=== PATIENT | male | born 1990 | race Caucasian/White ===

== ENCOUNTER 2016-07-30 13:46 | Emergency (ER) | payer OTHER ==
[2016-07-30] MEDS ORDERED: ONDANSETRON 4MG/2ML VIAL (J2405) As Ordered ONE (14:50)
[2016-07-30 15:12] LABS: BASO % 0.5 % (0.0-1.0); EOS % 0.4 % (0.0-3.0); LARGE UNSTAINED CELL # 0.3 K/mm3 (0.0-0.4); LARGE UNSTAINED CELL % 4.1 % (0.0-4.0); LYMPH # 0.9 K/mm3 (1.5-6.5); LYMPH % 13.7 % (24.0-44.0); MEAN CORPUSCULAR HEMOGLOBIN 30.9 pg (27.0-33.0); MEAN CORPUSCULAR HGB CONC 34.2 g/dl (32.0-36.5); MEAN CORPUSCULAR VOLUME 90.3 fl (80.0-96.0); MONO # 0.5 K/mm3 (0.0-0.8); MONO % 8.6 % (0.0-5.0); NEUTROPHILS # 4.5 K/mm3 (1.8-7.7); NEUTROPHILS % 72.6 % (36.0-66.0); PLATELET COUNT, AUTOMATED 212 k/mm3 (150-450); RED CELL DISTRIBUTION WIDTH 11.9 % (11.5-14.5); WHITE BLOOD COUNT 6.2 K/mm3 (4.0-10.0)
[2016-07-30 15:16] LABS: ANION GAP 11 MEQ/L (8-16); BLOOD UREA NITROGEN 12 MG/DL (7-18); CALCIUM LEVEL 8.7 MG/DL (8.5-10.1); CARBON DIOXIDE LEVEL 26 MEQ/L (21-32); CHLORIDE LEVEL 101 MEQ/L (98-107); CREATININE FOR GFR 1.02 MG/DL (0.70-1.30); GLOMERULAR FILTRATION RATE > 60.0 (>60); GLUCOSE, FASTING 102 MG/DL (70-105); POTASSIUM SERUM 3.9 MEQ/L (3.5-5.1); SODIUM LEVEL 138 MEQ/L (136-145)
--- NOTE | 2016-07-30 17:05 | EDDOCDS ---
Physician Documentation [facility] Name: Adriano Esqueda Age: 25 yrs Sex: Male : 1990 Arrival Date: 07/30/2016 Time: 13:46 Bed I7 Private MD: Jared Ramirez W Disposition: 07/30/16 16:51 Discharged to Home/Self Care. Impression: Nausea with vomiting, unspecified, Dysuria. - Condition is Stable. - Discharge Instructions: Nausea and Vomiting. - Prescriptions for ZOFRAN ODT 4 mg Oral - dissolve 1 tablet by ORAL route 3-4 times daily As needed do not chew, do not swallow whole; 20 tablet. - Medication Reconciliation, Local Pharmacy Hours form. - Follow up: Private Physician; When: 2 - 3 days; Reason: Wound/Symptom Recheck, Recheck today's complaints, Continuance of care. - Problem is new. - Symptoms have improved. Historical: - Allergies: No known drug Allergies; - Home Meds: 1. none - PMHx: Asthma; - PSHx: none; - Social history: Smoking status: Patient uses tobacco products, heavy tobacco smoker. No barriers to communication noted, The patient speaks fluent Greenlandic, Speaks appropriately for age. - Family history: Not pertinent. - : The pt / caregiver states he / she is not on anticoagulants. Home medication list is obtained from the patient. - Exposure Risk Screening:: None identified. Vital Signs: 07/30 13:48 BP 133 / 73; Pulse 101; Resp 18 S; Temp 96.9(O); Pulse Ox 97% on R/A; Weight 73.03 kg / gr2 161 lbs (R); Height 6 ft. 0 in. (182.88 cm) (R); Pain 3/10; 16:57 BP 122 / 58; Pulse 89; Resp 18; Temp 98.4; Pulse Ox 98.4% ; Pain 0/10; jlf 13:48 Body Mass Index 21.84 (73.03 kg, 182.88 cm) gr2 MDM: 14:33 IV Saline Lock ordered. dt4 14:33 NS 0.9% 1000 ml IV at bolus once ordered. dt4 14:33 Ondansetron 4 mg IVP once ordered. dt4 14:33 Fluid Challenge ordered. dt4 14:35 CBC with Diff Ordered. EDMS 14:35 Basic Metabolic Profile Ordered. EDMS 14:35 Urinalysis Ordered. EDMS 14:35 Urine Culture Ordered. EDMS 14:51 Financial registration complete. mm15 14:51 [facility] Payment Agreement was scanned into [employer] and attached to record. mm15 15:55 CBC with Diff Reviewed. ke 15:55 Basic Metabolic Profile Reviewed. ke 16:35 Urinalysis Reviewed. ke Administered Medications: 14:52 Drug: NS 0.9% 1000 ml [sodium chloride 0.9 % intravenous solution] Route: IV; Rate: srm bolus; Site: right antecubital; 14:52 Drug: Ondansetron 4 mg [ondansetron HCl 2 mg/mL intravenous solution (2 mL)] Route: srm IVP; Site: right antecubital; Signatures: Dispatcher [employer] EDKari Kim, RN RN srm Nimesh Chow, INTEGRATION SOFTWARE DEVELOPER INTEGRATION SOFTWARE DEVELOPER Nikki Francis RN RN ck1 Iza Harris RN RN [facility] Aleksey Cruz mm15 Bijal Metcalf PA-C PAUrbano dt4 The chart was reviewed and I authenticate all verbal orders and agree with the evaluation and treatment provided.Attachments: 14:51 [facility] Payment Agreement mm15 MTDD
--- NOTE | 2016-07-30 17:05 | EDDOCDS ---
Nurse's Notes [facility] Name: Adriano Esqueda Age: 25 yrs Sex: Male : 1990 Arrival Date: 07/30/2016 Time: 13:46 Bed I7 Private MD: Jared Ramirez W Diagnosis: Nausea with vomiting, unspecified;Dysuria Presentation: 07/30 13:51 Presenting complaint: Patient states: Fever for the past two days (doesn't have ck1 thermometer at home), unable to tolerate PO fluids/food. Denies abdominal pain. Adult Sepsis Screening: The patient does not have new or worsening altered mentation. Patient's respiratory rate is less than 22. Systolic blood pressure is greater than 100. Patient has a qSOFA score of 0- Negative Sepsis Screen. Suicide/Homicide risk assessment- the patient denies having any suicidal and/or homicidal ideations and does not present with any other emotional, behavioral or mental health complaints. Status: Patient is not a loan service officer or dependent. Transition of care: patient was not received from another setting of care. 13:51 Method Of Arrival: Walkin/Carried/Asstd ck1 13:51 Acuity: LETY Level 4 ck1 Triage Assessment: 13:53 General: Appears in no apparent distress, comfortable. Pain: Denies pain. HIV screening ck1 NA for this visit Offered previously. GI: Reports nausea, vomiting. : Reports burning with urination. Derm: Skin is intact, is healthy with good turgor, Skin is pink, warm & dry. Musculoskeletal: Circulation, motion, and sensation intact Range of motion intact in all extremities. Historical: - Allergies: No known drug Allergies; - Home Meds: 1. none - PMHx: Asthma; - PSHx: none; - Social history: Smoking status: Patient uses tobacco products, heavy tobacco smoker. No barriers to communication noted, The patient speaks fluent Rwandan, Speaks appropriately for age. - Family history: Not pertinent. - : The pt / caregiver states he / she is not on anticoagulants. Home medication list is obtained from the patient. - Exposure Risk Screening:: None identified. Screenin:04 Screening information is obtained from the patient. Fall risk: No risks identified. srm Assistance ADL's: requires no assistance with activities of daily living. Abuse/DV Screen: The patient / caregiver reports he/she is: not in a situation that causes fear, pain or injury. Nutritional screening: No deficits noted. Advance Directives: There is no active DNR order. home support is adequate. Assessment: 15:04 General: Appears in no apparent distress, Behavior is appropriate for age, cooperative. srm Respiratory: Airway is patent Respiratory effort is even, unlabored, Breath sounds are clear bilaterally. GI: Abdomen is non- distended Bowel sounds present X 4 quads. Abd is soft and non tender X 4 quads. Derm: No deficits noted. 16:00 General: IV infusing without difficulty, no new problems or complaints voiced, will cj continue to monitor. 17:02 General: Appears in no apparent distress, comfortable, Behavior is appropriate for age, cjh cooperative, reviewed discharge instructions, encouraged and answered questions, patient denies further needs, declines offer of additional assistance. Vital Signs: 13:48 BP 133 / 73; Pulse 101; Resp 18 S; Temp 96.9(O); Pulse Ox 97% on R/A; Weight 73.03 kg gr2 (R); Height 6 ft. 0 in. (182.88 cm) (R); Pain 3/10; 16:57 BP 122 / 58; Pulse 89; Resp 18; Temp 98.4; Pulse Ox 98.4% ; Pain 0/10; jlf 13:48 Body Mass Index 21.84 (73.03 kg, 182.88 cm) gr2 Vitals: 13:48 Log In Time: July 30, 2016 at 13:48. gr2 ED Course: 13:47 Patient visited by Jorge Quiñonez. gr2 13:47 Patient moved to Waiting gr2 13:48 Jared Ramirez is Private Physician. gr2 13:49 Patient visited by Jorge Quiñonez. gr2 13:49 Patient moved to Pre RCE gr2 13:52 Triage Initiated ck1 14:19 Bijla Metcalf [facility]-C [facility]. dt4 14:19 Esme Meza MD is Attending Physician. dt4 14:19 Patient visited by Bijal Metcalf PA-C. dt4 14:19 Patient moved to Triage 2 ttb 14:38 Patient moved to I7 / jjr 14:42 Patient visited by Cheikh Sheth PCA. jlf 14:49 Patient visited by Kari Borges RN. srm 14:49 Basic Metabolic Profile Sent. srm 14:49 CBC with Diff Sent. srm 14:49 Inserted saline lock: 20 gauge in right antecubital area and blood collected. srm 14:51 [facility] Payment Agreement was scanned into [employer] and attached to record. mm15 15:04 The patient / caregiver is instructed regarding the plan of care and ED course. srm Accompanied by Family Member, Patient has correct armband on for positive identification. Placed in gown. Bed in low position. Call light in reach. 15:05 Patient visited by Kari Borges RN. srm 15:18 Patient visited by Cheikh Sheth PCA. jlf 15:50 Patient visited by Cheikh Sheth PCA. jlf 15:51 Urine Culture Sent. jlf 15:51 Urinalysis Sent. jlf 16:10 Patient visited by Cheikh Sheth PCA. jlf 16:22 Patient visited by Cheikh Sheth PCA. jlf 16:33 PHCP role handed off by Bijal Metcalf PA-C ke 16:33 Nimesh Chow FNP is PHCP. ke 16:33 Patient visited by Nimesh Chow FNP. ke 16:57 Patient visited by Cheikh Sheth PCA. jlf 16:58 Patient visited by Cheikh Sheth PCA. jlf 17:02 Discontinued lock intact, bleeding controlled, pressure dressing applied, No cjh redness/swelling at site. No procedures done that require assistance. Administered Medications: 14:52 Drug: NS 0.9% 1000 ml [sodium chloride 0.9 % intravenous solution] Route: IV; Rate: srm bolus; Site: right antecubital; 14:52 Drug: Ondansetron 4 mg [ondansetron HCl 2 mg/mL intravenous solution (2 mL)] Route: srm IVP; Site: right antecubital; Order Results: Lab Order: CBC with Diff; SPEC'M 07/30/16 14:47 Test: WHITE BLOOD COUNT; Value: 6.2; Range: 4.0-10.0; Units: K/mm3; Status: F Test: RED BLOOD COUNT; Value: 5.38; Range: 4.30-6.10; Units: M/mm3; Status: F Test: HEMOGLOBIN; Value: 16.6; Range: 14.0-18.0; Units: g/dl; Status: F Test: HEMATOCRIT; Value: 48.6; Range: 42.0-52.0; Units: %; Status: F Test: MEAN CORPUSCULAR VOLUME; Value: 90.3; Range: 80.0-96.0; Units: fl; Status: F Test: MEAN CORPUSCULAR HEMOGLOBIN; Value: 30.9; Range: 27.0-33.0; Units: pg; Status: F Test: MEAN CORPUSCULAR HGB CONC; Value: 34.2; Range: 32.0-36.5; Units: g/dl; Status: F Test: RED CELL DISTRIBUTION WIDTH; Value: 11.9; Range: 11.5-14.5; Units: %; Status: F Test: PLATELET COUNT, AUTOMATED; Value: 212; Range: 150-450; Units: k/mm3; Status: F Test: NEUTROPHILS %; Value: 72.6; Range: 36.0-66.0; Abnormal: Above high normal; Units: %; Status: F Test: LYMPH %; Value: 13.7; Range: 24.0-44.0; Abnormal: Below low normal; Units: %; Status: F Test: MONO %; Value: 8.6; Range: 0.0-5.0; Abnormal: Above high normal; Units: %; Status: F Test: EOS %; Value: 0.4; Range: 0.0-3.0; Units: %; Status: F Test: BASO %; Value: 0.5; Range: 0.0-1.0; Units: %; Status: F Test: LARGE UNSTAINED CELL %; Value: 4.1; Range: 0.0-4.0; Abnormal: Above high normal; Units: %; Status: F Test: NEUTROPHILS #; Value: 4.5; Range: 1.8-7.7; Units: K/mm3; Status: F Test: LYMPH #; Value: 0.9; Range: 1.5-6.5; Abnormal: Below low normal; Units: K/mm3; Status: F Test: MONO #; Value: 0.5; Range: 0.0-0.8; Units: K/mm3; Status: F Test: EOS #; Value: 0.0; Range: 0.0-0.50; Units: K/mm3; Status: F Test: BASO #; Value: 0.0; Range: 0.0-0.2; Units: K/mm3; Status: F Test: LARGE UNSTAINED CELL #; Value: 0.3; Range: 0.0-0.4; Units: K/mm3; Status: F Lab Order: Basic Metabolic Profile; SPEC'M 07/30/16 14:47 Test: GLUCOSE, FASTING; Value: 102; Range: 70-105; Units: MG/DL; Status: F Test: BLOOD UREA NITROGEN; Value: 12; Range: 7-18; Units: MG/DL; Status: F Test: CREATININE FOR GFR; Value: 1.02; Range: 0.70-1.30; Units: MG/DL; Status: F Test: GLOMERULAR FILTRATION RATE; Value: > 60.0; Range: >60; Status: F Test: SODIUM LEVEL; Value: 138; Range: 136-145; Units: MEQ/L; Status: F Test: POTASSIUM SERUM; Value: 3.9; Range: 3.5-5.1; Units: MEQ/L; Status: F Test: CHLORIDE LEVEL; Value: 101; Range: 98-107; Units: MEQ/L; Status: F Test: CARBON DIOXIDE LEVEL; Value: 26; Range: 21-32; Units: MEQ/L; Status: F Test: ANION GAP; Value: 11; Range: 8-16; Units: MEQ/L; Status: F Test: CALCIUM LEVEL; Value: 8.7; Range: 8.5-10.1; Units: MG/DL; Status: F Test Note: ; Units are mL/min/1.73 m2 Chronic Kidney Disease Staging per NKF: Stage I & II GFR >=60 Normal to Mildly Decreased Stage III GFR 30-59 Moderately Decreased Stage IV GFR 15-29 Severely Decreased Stage V GFR <15 Very Little GFR Left ESRD GFR <15 on HEAD TENNIS COACH Lab Order: Urinalysis; SPEC'M 07/30/16 15:46 Test: APPEARANCE, URINE; Value: CLEAR; Range: CLEAR; Status: F Test: COLOR, URINE; Value: YELLOW; Range: YELLOW; Status: F Test: PH,URINE; Value: 5.0; Range: 5.0-9.0; Units: UNITS; Status: F Test: SPECIFIC GRAVITY URINE AUTO; Value: 1.027; Range: 1.002-1.035; Status: F Test: PROTEIN, URINE AUTO; Value: NEGATIVE; Range: NEGATIVE; Units: mg/dL; Status: F Test: GLUCOSE, URINE (UA) AUTO; Value: NEGATIVE; Range: NEGATIVE; Units: mg/dL; Status: F Test: KETONE, URINE AUTO; Value: NEGATIVE; Range: NEGATIVE; Units: mg/dL; Status: F Test: UROBILINOGEN, URINE AUTO; Value: 0.2; Range: 0.0-2.0; Units: mg/dL; Status: F Test: BILIRUBIN, URINE AUTO; Value: NEGATIVE; Range: NEGATIVE; Status: F Test: NITRITE, URINE AUTO; Value: NEGATIVE; Range: NEGATIVE; Status: F Test: LEUKOCYTE ESTERASE, URINE AUTO; Value: NEGATIVE; Range: NEGATIVE; Status: F Test: BLOOD, URINE BLOOD; Value: NEGATIVE; Range: NEGATIVE; Status: F Test: WBC, URINE AUTO; Value: 3; Range: 0-3; Units: /HPF; Status: F Test: RBC, URINE AUTO; Value: 5; Range: 0-3; Abnormal: Above high normal; Units: /HPF; Status: F Test: BACTERIA, URINE AUTO; Value: NEGATIVE; Range: NEGATIVE; Status: F Test: SQUAMOUS EPITHELIAL CELL UR AU; Value: 0; Range: 0-6; Units: /HPF; Status: F Test: MUCUS, URINE; Value: SMALL; Range: NEGATIVE; Status: F Test: HYALINE CAST, URINE AUTO; Value: 0; Range: 0-1; Units: /LPF; Status: F Outcome: 16:51 Discharge ordered by Provider. ke 17:02 Discharge Assessment: Patient awake, alert and oriented x 3. No cognitive and/or cjh functional deficits noted. Patient verbalized understanding of disposition instructions. patient administered narcotics - no. The following High Risk Discharge criteria are identified: None. Discharged to home ambulatory, with parent. Condition: good Condition: stable Condition: improved. Discharge instructions given to patient, Instructed on discharge instructions, follow up and referral plans. medication usage, Demonstrated understanding of instructions, medications, Pt was receptive of discharge instructions/ teaching. Prescriptions given X 1. No special radiology studies were completed. Property :Personal belongings accompany Pt. 17:03 Patient left the ED. [facility] Signatures: Kari Borges, RN RN Nimesh Maldonado, TEEN COUNSELOR TEEN COUNSELOR Nikki FrancisRN RN ck1 Daniella Quiñonez RN RN jjr Hafner, Jane, RN RN [facility] Caryl Harvey RN RN ttb Jorge Quiñonez gr2 Aleksey Cruz mm15 Cheikh Sheth PCA INSURANCE HEALTHCARE CONSULTANT Bijal Norwood PA-C PA-Jess dt4 MTDD
--- NOTE | 2016-08-01 18:05 | EDDOCDS ---
Physician Documentation [facility] Name: Adriano Esqueda Age: 25 yrs Sex: Male : 1990 Arrival Date: 07/30/2016 Time: 13:46 Bed I7 Private MD: Jared Ramirez W Disposition: 07/30/16 16:51 Discharged to Home/Self Care. Impression: Nausea with vomiting, unspecified, Dysuria. - Condition is Stable. - Discharge Instructions: Nausea and Vomiting. - Prescriptions for ZOFRAN ODT 4 mg Oral - dissolve 1 tablet by ORAL route 3-4 times daily As needed do not chew, do not swallow whole; 20 tablet. - Medication Reconciliation, Local Pharmacy Hours form. - Follow up: Private Physician; When: 2 - 3 days; Reason: Wound/Symptom Recheck, Recheck today's complaints, Continuance of care. - Problem is new. - Symptoms have improved. Historical: - Allergies: No known drug Allergies; - Home Meds: 1. none - PMHx: Asthma; - PSHx: none; - Social history: Smoking status: Patient uses tobacco products, heavy tobacco smoker. No barriers to communication noted, The patient speaks fluent Lithuanian, Speaks appropriately for age. - Family history: Not pertinent. - : The pt / caregiver states he / she is not on anticoagulants. Home medication list is obtained from the patient. - Exposure Risk Screening:: None identified. Vital Signs: 07/30 13:48 BP 133 / 73; Pulse 101; Resp 18 S; Temp 96.9(O); Pulse Ox 97% on R/A; Weight 73.03 kg / gr2 161 lbs (R); Height 6 ft. 0 in. (182.88 cm) (R); Pain 3/10; 16:57 BP 122 / 58; Pulse 89; Resp 18; Temp 98.4; Pulse Ox 98.4% ; Pain 0/10; jlf 13:48 Body Mass Index 21.84 (73.03 kg, 182.88 cm) gr2 MDM: 14:33 IV Saline Lock ordered. dt4 14:33 NS 0.9% 1000 ml IV at bolus once ordered. dt4 14:33 Ondansetron 4 mg IVP once ordered. dt4 14:33 Fluid Challenge ordered. dt4 14:35 CBC with Diff Ordered. EDMS 14:35 Basic Metabolic Profile Ordered. EDMS 14:35 Urinalysis Ordered. EDMS 14:35 Urine Culture Ordered. EDMS 14:51 Financial registration complete. mm15 14:51 [facility] Payment Agreement was scanned into [employer] and attached to record. mm15 15:55 CBC with Diff Reviewed. ke 15:55 Basic Metabolic Profile Reviewed. ke 16:35 Urinalysis Reviewed. ke 07/31 10:12 T-Sheet-- Draft Copy was scanned into [employer] and attached to record. gb Administered Medications: 07/30 14:52 Drug: NS 0.9% 1000 ml [sodium chloride 0.9 % intravenous solution] Route: IV; Rate: srm bolus; Site: right antecubital; 14:52 Drug: Ondansetron 4 mg [ondansetron HCl 2 mg/mL intravenous solution (2 mL)] Route: srm IVP; Site: right antecubital; Signatures: Dispatcher [employer] EDMS Kari Borges, RN RN [facility] Malena Atkinson, Reg Reg Nimesh Chow, HEEL SEAT POUNDER HEEL SEAT POUNDER Nikki Samaniego RN RN ck1 Iza HarrisRN RN [facility] Aleksey Cruz mm15 Bijal Metcalf PA-C PA-C dt4 The chart was reviewed and I authenticate all verbal orders and agree with the evaluation and treatment provided.Attachments: 14:51 [facility] Payment Agreement mm15 07/31 10:12 T-Sheet-- Draft Copy gb Chart Complete MTDD
--- NOTE | 2016-08-01 18:05 | EDDOCDS ---
Physician Documentation [facility] Name: Adriano Esqueda Age: 25 yrs Sex: Male : 1990 Arrival Date: 07/30/2016 Time: 13:46 Bed I7 Private MD: Jared Ramirez W Disposition: 07/30/16 16:51 Discharged to Home/Self Care. Impression: Nausea with vomiting, unspecified, Dysuria. - Condition is Stable. - Discharge Instructions: Nausea and Vomiting. - Prescriptions for ZOFRAN ODT 4 mg Oral - dissolve 1 tablet by ORAL route 3-4 times daily As needed do not chew, do not swallow whole; 20 tablet. - Medication Reconciliation, Local Pharmacy Hours form. - Follow up: Private Physician; When: 2 - 3 days; Reason: Wound/Symptom Recheck, Recheck today's complaints, Continuance of care. - Problem is new. - Symptoms have improved. Historical: - Allergies: No known drug Allergies; - Home Meds: 1. none - PMHx: Asthma; - PSHx: none; - Social history: Smoking status: Patient uses tobacco products, heavy tobacco smoker. No barriers to communication noted, The patient speaks fluent Wolof, Speaks appropriately for age. - Family history: Not pertinent. - : The pt / caregiver states he / she is not on anticoagulants. Home medication list is obtained from the patient. - Exposure Risk Screening:: None identified. Vital Signs: 07/30 13:48 BP 133 / 73; Pulse 101; Resp 18 S; Temp 96.9(O); Pulse Ox 97% on R/A; Weight 73.03 kg / gr2 161 lbs (R); Height 6 ft. 0 in. (182.88 cm) (R); Pain 3/10; 16:57 BP 122 / 58; Pulse 89; Resp 18; Temp 98.4; Pulse Ox 98.4% ; Pain 0/10; jlf 13:48 Body Mass Index 21.84 (73.03 kg, 182.88 cm) gr2 MDM: 14:33 IV Saline Lock ordered. dt4 14:33 NS 0.9% 1000 ml IV at bolus once ordered. dt4 14:33 Ondansetron 4 mg IVP once ordered. dt4 14:33 Fluid Challenge ordered. dt4 14:35 CBC with Diff Ordered. EDMS 14:35 Basic Metabolic Profile Ordered. EDMS 14:35 Urinalysis Ordered. EDMS 14:35 Urine Culture Ordered. EDMS 14:51 Financial registration complete. mm15 14:51 [facility] Payment Agreement was scanned into [employer] and attached to record. mm15 15:55 CBC with Diff Reviewed. ke 15:55 Basic Metabolic Profile Reviewed. ke 16:35 Urinalysis Reviewed. ke 07/31 10:12 T-Sheet-- Draft Copy was scanned into [employer] and attached to record. gb Administered Medications: 07/30 14:52 Drug: NS 0.9% 1000 ml [sodium chloride 0.9 % intravenous solution] Route: IV; Rate: srm bolus; Site: right antecubital; 14:52 Drug: Ondansetron 4 mg [ondansetron HCl 2 mg/mL intravenous solution (2 mL)] Route: srm IVP; Site: right antecubital; Signatures: Dispatcher [employer] EDMS Kari Borges, RN RN [facility] Malena Atkinson, Reg Reg Nimesh Chow, COLD WORKING INSPECTOR COLD WORKING INSPECTOR Nikki Samaniego RN RN ck1 Iza HarrisRN RN [facility] Aleksey Cruz mm15 Bijal Metcalf PA-C PA-C dt4 The chart was reviewed and I authenticate all verbal orders and agree with the evaluation and treatment provided.Attachments: 14:51 [facility] Payment Agreement mm15 07/31 10:12 T-Sheet-- Draft Copy gb Chart Complete MTDD
--- NOTE | 2016-08-01 18:05 | EDDOCDS ---
Nurse's Notes [facility] Name: Adriano Esqueda Age: 25 yrs Sex: Male : 1990 Arrival Date: 07/30/2016 Time: 13:46 Bed I7 Private MD: Jared Ramirez W Diagnosis: Nausea with vomiting, unspecified;Dysuria Presentation: 07/30 13:51 Presenting complaint: Patient states: Fever for the past two days (doesn't have ck1 thermometer at home), unable to tolerate PO fluids/food. Denies abdominal pain. Adult Sepsis Screening: The patient does not have new or worsening altered mentation. Patient's respiratory rate is less than 22. Systolic blood pressure is greater than 100. Patient has a qSOFA score of 0- Negative Sepsis Screen. Suicide/Homicide risk assessment- the patient denies having any suicidal and/or homicidal ideations and does not present with any other emotional, behavioral or mental health complaints. Status: Patient is not a service delivery consultant or dependent. Transition of care: patient was not received from another setting of care. 13:51 Method Of Arrival: Walkin/Carried/Asstd ck1 13:51 Acuity: LETY Level 4 ck1 Triage Assessment: 13:53 General: Appears in no apparent distress, comfortable. Pain: Denies pain. HIV screening ck1 NA for this visit Offered previously. GI: Reports nausea, vomiting. : Reports burning with urination. Derm: Skin is intact, is healthy with good turgor, Skin is pink, warm & dry. Musculoskeletal: Circulation, motion, and sensation intact Range of motion intact in all extremities. Historical: - Allergies: No known drug Allergies; - Home Meds: 1. none - PMHx: Asthma; - PSHx: none; - Social history: Smoking status: Patient uses tobacco products, heavy tobacco smoker. No barriers to communication noted, The patient speaks fluent [place] Zealander, Speaks appropriately for age. - Family history: Not pertinent. - : The pt / caregiver states he / she is not on anticoagulants. Home medication list is obtained from the patient. - Exposure Risk Screening:: None identified. Screenin:04 Screening information is obtained from the patient. Fall risk: No risks identified. srm Assistance ADL's: requires no assistance with activities of daily living. Abuse/DV Screen: The patient / caregiver reports he/she is: not in a situation that causes fear, pain or injury. Nutritional screening: No deficits noted. Advance Directives: There is no active DNR order. home support is adequate. Assessment: 15:04 General: Appears in no apparent distress, Behavior is appropriate for age, cooperative. srm Respiratory: Airway is patent Respiratory effort is even, unlabored, Breath sounds are clear bilaterally. GI: Abdomen is non- distended Bowel sounds present X 4 quads. Abd is soft and non tender X 4 quads. Derm: No deficits noted. 16:00 General: IV infusing without difficulty, no new problems or complaints voiced, will cj continue to monitor. 17:02 General: Appears in no apparent distress, comfortable, Behavior is appropriate for age, cjh cooperative, reviewed discharge instructions, encouraged and answered questions, patient denies further needs, declines offer of additional assistance. Vital Signs: 13:48 BP 133 / 73; Pulse 101; Resp 18 S; Temp 96.9(O); Pulse Ox 97% on R/A; Weight 73.03 kg gr2 (R); Height 6 ft. 0 in. (182.88 cm) (R); Pain 3/10; 16:57 BP 122 / 58; Pulse 89; Resp 18; Temp 98.4; Pulse Ox 98.4% ; Pain 0/10; jlf 13:48 Body Mass Index 21.84 (73.03 kg, 182.88 cm) gr2 Vitals: 13:48 Log In Time: July 30, 2016 at 13:48. gr2 ED Course: 13:47 Patient visited by Jorge Quiñonez. gr2 13:47 Patient moved to Waiting gr2 13:48 Jared Ramirez is Private Physician. gr2 13:49 Patient visited by Jorge Quiñonez. gr2 13:49 Patient moved to Pre RCE gr2 13:52 Triage Initiated ck1 14:19 Bijal Metcalf PA-C [facility]. dt4 14:19 Esme Meza MD is Attending Physician. dt4 14:19 Patient visited by Bijal Metcalf PA-C. dt4 14:19 Patient moved to Triage 2 ttb 14:38 Patient moved to I7 / jjr 14:42 Patient visited by Cheikh Sheth PCA. jlf 14:49 Patient visited by Kari Borges RN. srm 14:49 Basic Metabolic Profile Sent. srm 14:49 CBC with Diff Sent. srm 14:49 Inserted saline lock: 20 gauge in right antecubital area and blood collected. srm 14:51 [facility] Payment Agreement was scanned into [employer] and attached to record. mm15 15:04 The patient / caregiver is instructed regarding the plan of care and ED course. srm Accompanied by Family Member, Patient has correct armband on for positive identification. Placed in gown. Bed in low position. Call light in reach. 15:05 Patient visited by Kari Borges RN. srm 15:18 Patient visited by Cheikh Sheth PCA. jlf 15:50 Patient visited by Cheikh Sheth PCA. jlf 15:51 Urine Culture Sent. jlf 15:51 Urinalysis Sent. jlf 16:10 Patient visited by Cheikh Sheth PCA. jlf 16:22 Patient visited by Cheikh Sheth PCA. jlf 16:33 PHCP role handed off by Bijal Metcalf PA-C ke 16:33 Nimesh Chow FNP is PHCP. ke 16:33 Patient visited by Nimesh Chow FNP. ke 16:57 Patient visited by Cheikh Sheth PCA. jlf 16:58 Patient visited by Cheikh Sheth PCA. jlf 17:02 Discontinued lock intact, bleeding controlled, pressure dressing applied, No cjh redness/swelling at site. No procedures done that require assistance. 07/31 10:12 T-Sheet-- Draft Copy was scanned into [employer] and attached to record. gb Administered Medications: 07/30 14:52 Drug: NS 0.9% 1000 ml [sodium chloride 0.9 % intravenous solution] Route: IV; Rate: srm bolus; Site: right antecubital; 14:52 Drug: Ondansetron 4 mg [ondansetron HCl 2 mg/mL intravenous solution (2 mL)] Route: srm IVP; Site: right antecubital; Order Results: Lab Order: CBC with Diff; SPEC'M 07/30/16 14:47 Test: WHITE BLOOD COUNT; Value: 6.2; Range: 4.0-10.0; Units: K/mm3; Status: F Test: RED BLOOD COUNT; Value: 5.38; Range: 4.30-6.10; Units: M/mm3; Status: F Test: HEMOGLOBIN; Value: 16.6; Range: 14.0-18.0; Units: g/dl; Status: F Test: HEMATOCRIT; Value: 48.6; Range: 42.0-52.0; Units: %; Status: F Test: MEAN CORPUSCULAR VOLUME; Value: 90.3; Range: 80.0-96.0; Units: fl; Status: F Test: MEAN CORPUSCULAR HEMOGLOBIN; Value: 30.9; Range: 27.0-33.0; Units: pg; Status: F Test: MEAN CORPUSCULAR HGB CONC; Value: 34.2; Range: 32.0-36.5; Units: g/dl; Status: F Test: RED CELL DISTRIBUTION WIDTH; Value: 11.9; Range: 11.5-14.5; Units: %; Status: F Test: PLATELET COUNT, AUTOMATED; Value: 212; Range: 150-450; Units: k/mm3; Status: F Test: NEUTROPHILS %; Value: 72.6; Range: 36.0-66.0; Abnormal: Above high normal; Units: %; Status: F Test: LYMPH %; Value: 13.7; Range: 24.0-44.0; Abnormal: Below low normal; Units: %; Status: F Test: MONO %; Value: 8.6; Range: 0.0-5.0; Abnormal: Above high normal; Units: %; Status: F Test: EOS %; Value: 0.4; Range: 0.0-3.0; Units: %; Status: F Test: BASO %; Value: 0.5; Range: 0.0-1.0; Units: %; Status: F Test: LARGE UNSTAINED CELL %; Value: 4.1; Range: 0.0-4.0; Abnormal: Above high normal; Units: %; Status: F Test: NEUTROPHILS #; Value: 4.5; Range: 1.8-7.7; Units: K/mm3; Status: F Test: LYMPH #; Value: 0.9; Range: 1.5-6.5; Abnormal: Below low normal; Units: K/mm3; Status: F Test: MONO #; Value: 0.5; Range: 0.0-0.8; Units: K/mm3; Status: F Test: EOS #; Value: 0.0; Range: 0.0-0.50; Units: K/mm3; Status: F Test: BASO #; Value: 0.0; Range: 0.0-0.2; Units: K/mm3; Status: F Test: LARGE UNSTAINED CELL #; Value: 0.3; Range: 0.0-0.4; Units: K/mm3; Status: F Lab Order: Basic Metabolic Profile; SPEC'M 07/30/16 14:47 Test: GLUCOSE, FASTING; Value: 102; Range: 70-105; Units: MG/DL; Status: F Test: BLOOD UREA NITROGEN; Value: 12; Range: 7-18; Units: MG/DL; Status: F Test: CREATININE FOR GFR; Value: 1.02; Range: 0.70-1.30; Units: MG/DL; Status: F Test: GLOMERULAR FILTRATION RATE; Value: > 60.0; Range: >60; Status: F Test: SODIUM LEVEL; Value: 138; Range: 136-145; Units: MEQ/L; Status: F Test: POTASSIUM SERUM; Value: 3.9; Range: 3.5-5.1; Units: MEQ/L; Status: F Test: CHLORIDE LEVEL; Value: 101; Range: 98-107; Units: MEQ/L; Status: F Test: CARBON DIOXIDE LEVEL; Value: 26; Range: 21-32; Units: MEQ/L; Status: F Test: ANION GAP; Value: 11; Range: 8-16; Units: MEQ/L; Status: F Test: CALCIUM LEVEL; Value: 8.7; Range: 8.5-10.1; Units: MG/DL; Status: F Test Note: ; Units are mL/min/1.73 m2 Chronic Kidney Disease Staging per NKF: Stage I & II GFR >=60 Normal to Mildly Decreased Stage III GFR 30-59 Moderately Decreased Stage IV GFR 15-29 Severely Decreased Stage V GFR <15 Very Little GFR Left ESRD GFR <15 on MANAGER OF PROGRAM Lab Order: Urinalysis; SPEC'M 07/30/16 15:46 Test: APPEARANCE, URINE; Value: CLEAR; Range: CLEAR; Status: F Test: COLOR, URINE; Value: YELLOW; Range: YELLOW; Status: F Test: PH,URINE; Value: 5.0; Range: 5.0-9.0; Units: UNITS; Status: F Test: SPECIFIC GRAVITY URINE AUTO; Value: 1.027; Range: 1.002-1.035; Status: F Test: PROTEIN, URINE AUTO; Value: NEGATIVE; Range: NEGATIVE; Units: mg/dL; Status: F Test: GLUCOSE, URINE (UA) AUTO; Value: NEGATIVE; Range: NEGATIVE; Units: mg/dL; Status: F Test: KETONE, URINE AUTO; Value: NEGATIVE; Range: NEGATIVE; Units: mg/dL; Status: F Test: UROBILINOGEN, URINE AUTO; Value: 0.2; Range: 0.0-2.0; Units: mg/dL; Status: F Test: BILIRUBIN, URINE AUTO; Value: NEGATIVE; Range: NEGATIVE; Status: F Test: NITRITE, URINE AUTO; Value: NEGATIVE; Range: NEGATIVE; Status: F Test: LEUKOCYTE ESTERASE, URINE AUTO; Value: NEGATIVE; Range: NEGATIVE; Status: F Test: BLOOD, URINE BLOOD; Value: NEGATIVE; Range: NEGATIVE; Status: F Test: WBC, URINE AUTO; Value: 3; Range: 0-3; Units: /HPF; Status: F Test: RBC, URINE AUTO; Value: 5; Range: 0-3; Abnormal: Above high normal; Units: /HPF; Status: F Test: BACTERIA, URINE AUTO; Value: NEGATIVE; Range: NEGATIVE; Status: F Test: SQUAMOUS EPITHELIAL CELL UR AU; Value: 0; Range: 0-6; Units: /HPF; Status: F Test: MUCUS, URINE; Value: SMALL; Range: NEGATIVE; Status: F Test: HYALINE CAST, URINE AUTO; Value: 0; Range: 0-1; Units: /LPF; Status: F Lab Order: Urine Culture; SPEC'M 07/30/16 15:46 Test: URINE CULTURE; Value: <EXTERNAL COMMENT eCWMed> FULL REPORT IN LAB NOTES (eCW and Medent).; Status: F Test: URINE CULTURE; Value: URINE CULTURE RESULT NO GROWTH; Status: F Outcome: 16:51 Discharge ordered by Provider. 17:02 Discharge Assessment: Patient awake, alert and oriented x 3. No cognitive and/or the [facility] functional deficits noted. Patient verbalized understanding of disposition instructions. patient administered narcotics - no. The following High Risk Discharge criteria are identified: None. Discharged to home ambulatory, with parent. Condition: good Condition: stable Condition: improved. Discharge instructions given to patient, Instructed on discharge instructions, follow up and referral plans. medication usage, Demonstrated understanding of instructions, medications, Pt was receptive of discharge instructions/ teaching. Prescriptions given X 1. No special radiology studies were completed. Property :Personal belongings accompany Pt. 17:03 Patient left the ED. the [facility] Signatures: Kari Borges, RN RN srm [place], Malena, Reg Reg gb Nimesh Chow, RENT COLLECTOR RENT COLLECTOR darryl Samaniego,Nikki,RN RN ck1 Daniella Quiñonez RN RN Iza MercadoRN RN [facility] Caryl Harvey RN RN Jorge Medina gr2 Aleksey Cruz mm15 Cheikh Sheth, JORDAN COREMAKER MACHINE ye Bijal Metcalf, DAISY-Jess PA-Jess dt4 Chart Complete MTDD
== END 2016-07-30 17:03 | disposition home or self-care (01) ==
LOC: M ED 13:46
DX: K52.9 Noninfective gastroenteritis and colitis, unspecified (principal); R30.0 Dysuria; J45.909 Unspecified asthma, uncomplicated; Z72.0 Tobacco use
CPT/HCPCS: 36415; 80048; 81001; 85025; 87086; 96374; 99284; J2405

== ENCOUNTER → 2020-08-05 | Outpatient (CLI) | payer OTHER ==
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
== END ==
LOC: M PAIN 08:30
PROVIDERS: ATTEND Nurse Practitioner Family
DX: M79.18 Myalgia, other site (principal); M54.6 Pain in thoracic spine; F17.210 Nicotine dependence, cigarettes, uncomplicated; Z79.1 Long term (current) use of non-steroidal anti-inflammatories (NSAID); Z88.6 Allergy status to analgesic agent

== ENCOUNTER → 2020-08-27 | Outpatient (CLI) | payer OTHER ==
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
== END ==
LOC: M PAIN 10:45
PROVIDERS: ATTEND Nurse Practitioner Family
DX: M54.16 Radiculopathy, lumbar region (principal); Z79.1 Long term (current) use of non-steroidal anti-inflammatories (NSAID); F17.210 Nicotine dependence, cigarettes, uncomplicated; Z88.6 Allergy status to analgesic agent